=== PATIENT | female | born 1970 | race Caucasian/White ===

== ENCOUNTER 2017-08-31 13:13 | Emergency (ER) | payer MEDICAID ==
[~2017-08-31] VITALS: Ht 162.6 cm; Wt 72.0 kg
[2017-08-31 13:19] VITALS: BP 115/82
[2017-08-31] MEDS ORDERED: PENI500T2 PO (14:17)
[2017-08-31] MEDS ORDERED: IBUP-1984 PO (14:17)
== END 2017-08-31 14:37 | disposition home or self-care (01) ==
LOC: ER 13:14
DX: K04.7 Periapical abscess without sinus (principal)
CPT/HCPCS: 99283

== ENCOUNTER 2018-01-19 08:12 | Emergency (ER) | payer MEDICAID ==
[~2018-01-19] VITALS: Ht 167.6 cm; Wt 66.0 kg
[~2018-01-19 08:12] MED LIST: DOCU-28 PO; MAGN296S50 PO
[2018-01-19 08:15] VITALS: BP 122/74
[2018-01-19] MEDS ORDERED: AMOX500C2 PO (08:34)
[2018-01-19] MEDS ORDERED: IBUP-1984 PO (08:35)
== END 2018-01-19 09:05 | disposition home or self-care (01) ==
LOC: ER 08:13
DX: K04.7 Periapical abscess without sinus (principal); K21.9 Gastro-esophageal reflux disease without esophagitis; F17.200 Nicotine dependence, unspecified, uncomplicated; Z88.1 Allergy status to other antibiotic agents; Z79.899 Other long term (current) drug therapy
CPT/HCPCS: 99283

== ENCOUNTER 2018-02-02 20:35 | Emergency (ER) | payer MEDICAID ==
[~2018-02-02] VITALS: Ht 167.6 cm; Wt 66.6 kg
[~2018-02-02 20:35] MED LIST changes: +IBUP-1984 PO
[2018-02-02 20:46] VITALS: BP 136/70
[2018-02-02] MEDS ORDERED: dexamethasone sod phosphate 10mg/ml inj PO STA (21:30)
== END 2018-02-02 22:11 | disposition home or self-care (01) ==
LOC: ER 20:36
DX: J02.9 Acute pharyngitis, unspecified (principal); K21.9 Gastro-esophageal reflux disease without esophagitis; K59.00 Constipation, unspecified; F17.200 Nicotine dependence, unspecified, uncomplicated; Z88.1 Allergy status to other antibiotic agents
CPT/HCPCS: 99282; J1100

== ENCOUNTER 2018-08-09 06:01 | Emergency (ER) | payer MEDICAID ==
[~2018-08-09] VITALS: Ht 167.6 cm; Wt 64.0 kg
[~2018-08-09 06:01] MED LIST changes: -IBUP-1984 PO
[2018-08-09 06:06] VITALS: BP 121/69
[2018-08-09] MEDS ORDERED: CLIN-96 PO (06:45)
[2018-08-09] MEDS ORDERED: morphine 4 MG/ML inj SYRINge IM ONE (06:45)
== END 2018-08-09 07:27 | disposition home or self-care (01) ==
LOC: ER 06:02
DX: K08.89 Other specified disorders of teeth and supporting structures (principal); E78.00 Pure hypercholesterolemia, unspecified; K21.9 Gastro-esophageal reflux disease without esophagitis; F17.200 Nicotine dependence, unspecified, uncomplicated; Z79.899 Other long term (current) drug therapy; Z88.1 Allergy status to other antibiotic agents
CPT/HCPCS: 96372; 99283; J2270

== ENCOUNTER 2020-02-15 13:19 | Emergency (ER) | payer MEDICAID ==
[~2020-02-15 13:19] MED LIST changes: +CLIN-97 PO; -MAGN296S50 PO; +MAGN296S70 PO
[2020-02-15 13:51] VITALS: BP 94/66
--- NOTE | 2020-02-15 15:27 | NUR ---
PT CALLED TO FAST TRACK X3, NIL. PROVIDER NOTIFIED, NO FURTHER ACTION ORDERED.
== END 2020-02-15 15:28 | disposition left against medical advice (07) ==
LOC: ER 13:19
DX: M54.9 Dorsalgia, unspecified (principal); Z53.21 Procedure and treatment not carried out due to patient leaving prior to being seen by health care provider

== ENCOUNTER 2020-04-21 00:14 | Emergency (ER) | payer MEDICAID ==
[~2020-04-21] VITALS: Ht 170.2 cm; Wt 63.6 kg
--- NOTE | 2020-04-21 00:46 | NUR ---
marketing operations intern, mirella, updated of Pt. EKG ordered for report of near syncopy and sweaty dizzy episodes and hx of palpitations.
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
--- NOTE | 2020-04-21 01:05 | NUR ---
Dr. Garcia updated of Pt and read EKG.
[2020-04-21] MEDS ORDERED: LORazepam 0.5 MG tablet PO PRN (02:10)
[2020-04-21 02:24] VITALS: BP 119/85
[2020-04-21 02:25] LABS: BASOPHILS % (AUTO) 0.6 % (0-1); EOSINOPHILS # (AUTO) 0.2 X10'3 (0-0.9); EOSINOPHILS % (AUTO) 2.8 % (0-6); HEMATOCRIT 45.1 % (35.0-45.0); HEMOGLOBIN 15.2 g/dl (12.0-16.0); LYMPHOCYTES # (AUTO) 1.5 X10'3 (1.1-4.8); LYMPHOCYTES % (AUTO) 24.5 % (21-51); MEAN CORPUSCULAR HEMOGLOBIN 33.6 PG (27.0-31.0); MEAN CORPUSCULAR HGB CONC 33.8 g/dL (33.0-36.5); MEAN CORPUSCULAR VOLUME 99.4 FL (78-98); MEAN PLATELET VOLUME 8.4 FL (7.4-10.4); MONOCYTES # (AUTO) 0.5 X10'3 (0-0.9); MONOCYTES % (AUTO) 7.5 % (2-12); NEUTROPHILS # (AUTO) 3.9 X10'3 (1.8-7.7); NEUTROPHILS % (AUTO) 64.6 % (42-75); PLATELET COUNT 235 X10'3 (140-440); RED BLOOD COUNT 4.53 X10'6 (4.20-5.60); RED CELL DISTRIBUTION WIDTH 14.2 % (11.5-14.5)
[2020-04-21 02:41] LABS: ALBUMIN 4.2 G/DL (3.4-5.0); ANION GAP 12 (8-16); BLOOD UREA NITROGEN 8 MG/DL (7-18); BUN/CREATININE RATIO 11.4 (6.6-38.0); CALCIUM 9.3 MG/DL (8.5-10.1); CHLORIDE 101 MMOL/L (99-107); GLUCOSE 104 MG/DL (70-104); MAGNESIUM 2.3 MG/DL (1.5-2.4); POTASSIUM 3.4 MMOL/L (3.5-5.1); SODIUM 138 MMOL/L (135-145); TOTAL CARBON DIOXIDE 24.9 MMOL/L (24-32); TROPONIN I < 0.04 NG/ML (0.0-0.05); eGFR 89 ML/MIN
--- NOTE | 2020-04-21 02:46 | NUR ---
awaiting lab results. just given ativan 0.5 mg po.
== END 2020-04-21 03:21 | disposition home or self-care (01) ==
LOC: ER 00:14
DX: U07.1 COVID-19 (principal); R53.1 Weakness; R53.83 Other fatigue; R42 Dizziness and giddiness; M79.10 Myalgia, unspecified site; E78.00 Pure hypercholesterolemia, unspecified; K21.9 Gastro-esophageal reflux disease without esophagitis; F17.200 Nicotine dependence, unspecified, uncomplicated; Z86.2 Personal history of diseases of the blood and blood-forming organs and certain disorders involving the immune mechanism; Z98.890 Other specified postprocedural states; Z88.1 Allergy status to other antibiotic agents; Z79.2 Long term (current) use of antibiotics; Z79.899 Other long term (current) drug therapy
CPT/HCPCS: 36415; 80048; 83735; 84484; 85025; 87635; 93005; 99284

== ENCOUNTER 2022-04-13 15:24 | Inpatient (IN) | payer MEDICAID ==
[~2022-04-13] VITALS: Ht 167.6 cm; Wt 59.0 kg
[~2022-04-13 15:24] MED LIST changes: +MAGN296S PO; -MAGN296S70 PO
[2022-04-13] MEDS ORDERED: normal saline 1000ML IV soln IVB ONE ×2 (19:40→22:50)
[2022-04-13] MEDS ORDERED: morphine 4 MG/ML inj SYRINge IV ONE (19:40)
[2022-04-13] MEDS ORDERED: vancomycin/NS 1 GM ADD-VANTAGE 250 ML IV ONE (20:00)
[2022-04-13 20:33] LABS: BASOPHILS % (AUTO) 0.2 % (0-1); EOSINOPHILS % (AUTO) 0.1 % (0-6); HEMATOCRIT 36.9 % (35.0-45.0); HEMOGLOBIN 11.9 g/dl (12.0-16.0); LYMPHOCYTES % (AUTO) 8.1 % (21-51); MEAN CORPUSCULAR HEMOGLOBIN 26.9 PG (27.0-31.0); MEAN CORPUSCULAR HGB CONC 32.3 g/dL (33.0-36.5); MEAN CORPUSCULAR VOLUME 83.2 FL (78-98); MONOCYTES # (AUTO) 0.8 X10'3 (0-0.9); MONOCYTES % (AUTO) 6.7 % (2-12); NEUTROPHILS # (AUTO) 10.5 X10'3 (1.8-7.7); NEUTROPHILS % (AUTO) 84.9 % (42-75); PLATELET COUNT 269 X10'3 (140-440); RED BLOOD COUNT 4.44 X10'6 (4.20-5.60); RED CELL DISTRIBUTION WIDTH 16.5 % (11.5-14.5); WHITE BLOOD COUNT 12.4 X10'3 (4.5-11.0)
[2022-04-13 20:54] LABS: ALANINE AMINOTRANSFERASE 19 U/L (12-78); ALBUMIN 3.3 G/DL (3.4-5.0); ALBUMIN/GLOBULIN RATIO 0.8 (1.1-1.5); ALKALINE PHOSPHATASE 153 IU/L (46-116); ANION GAP 11 (8-16); ASPARTATE AMINO TRANSFERASE 14 U/L (10-37); BILIRUBIN,TOTAL 0.3 MG/DL (0.1-1.0); BLOOD UREA NITROGEN 8 MG/DL (7-18); BUN/CREATININE RATIO 11.6 (6.6-38.0); CHLORIDE 100 MMOL/L (99-107); CREATININE 0.69 MG/DL (0.40-0.90); GLUCOSE 116 MG/DL (70-104); POTASSIUM 3.6 MMOL/L (3.5-5.1); SODIUM 136 MMOL/L (135-145); TOTAL CARBON DIOXIDE 25.5 MMOL/L (24-32); TOTAL PROTEIN 7.5 G/DL (6.4-8.2); eGFR 89 ML/MIN
[2022-04-13] MEDS ORDERED: temazepam 15mg capsule PO PRN (21:00)
[2022-04-13 21:13] LABS: CLARITY,URINE SLIGHTLY CLOUDY (Clear); COLOR,URINE YELLOW (Yellow); GLUCOSE, URINE NEGATIVE (Neg); KETONES,URINE NEGATIVE (Neg); LEUKOCYTE ESTERASE ,URINE SMALL (Neg); NITRITES, URINE POSITIVE (Neg); OCCULT BLOOD,URINE TRACE-INTACT (Neg); PH,URINE 6.5 (4.8-8.0); PROTEIN,URINE NEGATIVE (Neg); URINE HCG NEGATIVE (NEG); UROBILINOGEN,URINE 0.2 E.U/dL (0.2-1.0)
[2022-04-13 21:15] LABS: UA COLLECTION TYPE CLN CATCH MIDSTREAM
[2022-04-13 21:20] LABS: BACTERIA,URINE 3+ /HPF (Neg); RBC,URINE 0-2 /HPF (0-2); SQUAMOUS EPITHELIAL CELL,UR MANY /LPF (FEW)
[2022-04-13 21:41] LABS: URINE AMPHETAMINE SCREEN POSITIVE (Neg); URINE BARBITUATE SCREEN NEGATIVE (Neg); URINE BENZODIAZEPINES SCREEN NEGATIVE (Neg); URINE CANNABINOID SCREEN NEGATIVE (Neg); URINE COCAINE SCREEN NEGATIVE (Neg); URINE METHADONE SCREEN NEGATIVE (Neg); URINE OPIATE SCREEN POSITIVE (Neg); URINE PHENCYCLIDINE SCREEN NEGATIVE (Neg)
[2022-04-13] MEDS ORDERED: sulfamethoxazole/trimethoprim DS (800/160mg) tablet PO ONE (21:45)
[2022-04-13] MEDS ORDERED: acetaminophen 325mg tablet PO PRN ×2 (22:45)
[2022-04-13] MEDS ORDERED: mag hydrox/Alum hydrox/simeth 30ml oral suspension PO PRN (22:45)
[2022-04-13] MEDS ORDERED: ondansetron 4mg rapidly disintigrating tab PO PRN (22:45)
[2022-04-13] MEDS ORDERED: diphenhydrAMINE 50 mg/ml inj IV PRN (22:45)
[2022-04-13] MEDS ORDERED: metoclopramide 5 mg/ml inj IV PRN (22:45)
[2022-04-13] MEDS ORDERED: bisacodyl 10mg suppository rectal RC PRN (22:45)
[2022-04-13] MEDS ORDERED: HYDROcodone/acetaminophen 10/325mg tab PO PRN (22:45)
[2022-04-13] MEDS ORDERED: HYDROcodone/acetaminophen 5mg/325mg tablet PO PRN (22:45)
[2022-04-13] MEDS ORDERED: ondansetron/PF 4mg/2ml inj IV PRN (22:45)
[2022-04-13] MEDS ORDERED: morphine 2 MG/ML inj. syringe IV PRN ×2 (22:45)
[2022-04-13] MEDS ORDERED: HYDROmorphone inj. 0.5 MG/0.5 ML DISP.SYRIN IV PRN (22:45)
[2022-04-13] MEDS ORDERED: diphenhydrAMINE 25mg capsule PO PRN (22:45)
[2022-04-13] MEDS ORDERED: acetaminophen 650mg rectal suppository RC PRN (22:45)
[2022-04-13] MEDS ORDERED: magnesium hydroxide 30ml (MOM) UD suspension PO PRN (22:45)
[2022-04-13 22:50] LABS: C-REACTIVE PROTEIN 4.86 MG/DL (0.0-0.5)
[2022-04-13] MEDS ORDERED: TETanus/Pertussis (Acell)/Diphther VAC/PF (Tdap-Adult) 0.5ml syringe IMVAC ONE (22:55)
[2022-04-13 23:10] LABS: APTT 30 SECONDS (22-32)
[2022-04-13 23:14] LABS: PHOSPHORUS 3.1 MG/DL (2.3-4.5)
[2022-04-14] MEDS: clindamycin 300mg/D5W 50mL 50 ML IV SCH ×2 (00:19→08:50)
[2022-04-14] MEDS: dextrose 5%-1/2 normal saline 1,000 ML IV SCH ×2 (00:50→08:45)
[2022-04-14 03:42] LABS: BASOPHILS % (AUTO) 0.1 % (0-1); EOSINOPHILS % (AUTO) 0.3 % (0-6); HEMATOCRIT 35.3 % (35.0-45.0); HEMOGLOBIN 11.2 g/dl (12.0-16.0); LYMPHOCYTES # (AUTO) 1.2 X10'3 (1.1-4.8); LYMPHOCYTES % (AUTO) 9.9 % (21-51); MEAN CORPUSCULAR HEMOGLOBIN 26.3 PG (27.0-31.0); MEAN CORPUSCULAR HGB CONC 31.7 g/dL (33.0-36.5); MEAN CORPUSCULAR VOLUME 83.2 FL (78-98); MEAN PLATELET VOLUME 8.1 FL (7.4-10.4); MONOCYTES # (AUTO) 1.1 X10'3 (0-0.9); MONOCYTES % (AUTO) 8.7 % (2-12); NEUTROPHILS # (AUTO) 9.8 X10'3 (1.8-7.7); PLATELET COUNT 257 X10'3 (140-440); RED BLOOD COUNT 4.24 X10'6 (4.20-5.60); WHITE BLOOD COUNT 12.1 X10'3 (4.5-11.0)
[2022-04-14 04:13] LABS: ALANINE AMINOTRANSFERASE 17 U/L (12-78); ALBUMIN 2.8 G/DL (3.4-5.0); ALBUMIN/GLOBULIN RATIO 0.7 (1.1-1.5); ALKALINE PHOSPHATASE 141 IU/L (46-116); ANION GAP 10 (8-16); ASPARTATE AMINO TRANSFERASE 17 U/L (10-37); BILIRUBIN,TOTAL 0.3 MG/DL (0.1-1.0); BLOOD UREA NITROGEN 10 MG/DL (7-18); BUN/CREATININE RATIO 12.2 (6.6-38.0); CALCIUM 8.4 MG/DL (8.5-10.1); CHLORIDE 105 MMOL/L (99-107); CREATININE 0.82 MG/DL (0.40-0.90); GLUCOSE 127 MG/DL (70-104); POTASSIUM 3.7 MMOL/L (3.5-5.1); SODIUM 139 MMOL/L (135-145); TOTAL CARBON DIOXIDE 23.8 MMOL/L (24-32); TOTAL PROTEIN 6.7 G/DL (6.4-8.2); eGFR 73 ML/MIN
--- NOTE | 2022-04-14 07:30 | NUR ---
Pt gets up on her own and unhooks her tubes and lines in order go to the bathroom and walk around. Her belongings are spread all around the room. Given bags to contain belonging.
[2022-04-14] MEDS: docusate sod 100mg capsule PO SCH ×2 (08:00→20:00)
--- NOTE | 2022-04-14 08:00 | NUR ---
Pt is awake and alert. C/O pain in B hands. Boyfriend at bedside.
--- NOTE | 2022-04-14 08:30 | NUR ---
Pt's visitor is loud and disruptive. Reminded that if he is to stay, he must be respectful and speak in a low volume.
--- NOTE | 2022-04-14 08:45 | NUR ---
Pt's visitor went to the bathroom and upon return he layed down on the floor and closed his eyes. When told that we would call security to have him removed, he stood up and went to Ms. Diaz's room.
[2022-04-14] MEDS: heparin, porcine 5000 units/ml vial SQ SCH ×2 (08:51→21:06)
[2022-04-14] MEDS: nicotine 21mg patch - 24 hr TD SCH (08:51)
[2022-04-14] MEDS: pantoprazole 40mg Tablet.DR PO SCH (08:55)
--- NOTE | 2022-04-14 09:30 | NUR ---
Pt heard crying. Went in the room to find two male visitors. Reminded them that the patient needs to rest and to keep their voices down.
--- NOTE | 2022-04-14 10:30 | NUR ---
Pt's visitors asked to leave the department due to being disruptive. Escorted out of the department by security.
--- NOTE | 2022-04-14 11:30 | NUR ---
Hands cleaned with scrub brush/chlorhexadine. Non-stick dressing applied to open blisters(dorsum) on B 4th fingers. B hands are swollen and have dry scabs.
--- NOTE | 2022-04-14 12:05 | NUR ---
Pt is sleeping.
[2022-04-14] MEDS: vancomycin/NS 1 GM ADD-VANTAGE 250 ML IV SCH (16:10)
--- NOTE | 2022-04-14 16:13 | NUR ---
Pt is sleeping.
[2022-04-14 19:00] VITALS: BP 143/72
[2022-04-14 22:00] VITALS: BP 146/77
[2022-04-15] MEDS: vancomycin/NS 1 GM ADD-VANTAGE 250 ML IV SCH (02:00)
[2022-04-15 06:16] LABS: BASOPHILS % (AUTO) 0.5 % (0-1); EOSINOPHILS # (AUTO) 0.1 X10'3 (0-0.9); EOSINOPHILS % (AUTO) 1.5 % (0-6); HEMATOCRIT 33.8 % (35.0-45.0); HEMOGLOBIN 10.9 g/dl (12.0-16.0); LYMPHOCYTES # (AUTO) 0.9 X10'3 (1.1-4.8); LYMPHOCYTES % (AUTO) 22.5 % (21-51); MEAN CORPUSCULAR HEMOGLOBIN 27.3 PG (27.0-31.0); MEAN CORPUSCULAR HGB CONC 32.3 g/dL (33.0-36.5); MEAN CORPUSCULAR VOLUME 84.5 FL (78-98); MEAN PLATELET VOLUME 7.9 FL (7.4-10.4); MONOCYTES # (AUTO) 0.4 X10'3 (0-0.9); MONOCYTES % (AUTO) 9.6 % (2-12); NEUTROPHILS # (AUTO) 2.5 X10'3 (1.8-7.7); NEUTROPHILS % (AUTO) 65.9 % (42-75); PLATELET COUNT 212 X10'3 (140-440); RED BLOOD COUNT 3.99 X10'6 (4.20-5.60); RED CELL DISTRIBUTION WIDTH 16.8 % (11.5-14.5); WHITE BLOOD COUNT 3.8 X10'3 (4.5-11.0)
--- NOTE | 2022-04-15 06:47 | NUR ---
Problems reprioritized. Patient report given, questions answered & plan of care reviewed with WILLIAM. Addendum: 04/15/22 at 0647 by Agustín Antunez RN Amended: Links added.
[2022-04-15 06:57] LABS: ALANINE AMINOTRANSFERASE 22 U/L (12-78); ALBUMIN 2.4 G/DL (3.4-5.0); ALBUMIN/GLOBULIN RATIO 0.6 (1.1-1.5); ALKALINE PHOSPHATASE 149 IU/L (46-116); ANION GAP 7 (8-16); ASPARTATE AMINO TRANSFERASE 26 U/L (10-37); BILIRUBIN,TOTAL 0.2 MG/DL (0.1-1.0); BLOOD UREA NITROGEN 9 MG/DL (7-18); BUN/CREATININE RATIO 11.5 (6.6-38.0); CALCIUM 8.2 MG/DL (8.5-10.1); CHLORIDE 105 MMOL/L (99-107); CREATININE 0.78 MG/DL (0.40-0.90); GLUCOSE 151 MG/DL (70-104); POTASSIUM 3.1 MMOL/L (3.5-5.1); SODIUM 137 MMOL/L (135-145); TOTAL CARBON DIOXIDE 25.3 MMOL/L (24-32); TOTAL PROTEIN 6.1 G/DL (6.4-8.2); eGFR 78 ML/MIN
[2022-04-15 07:00] VITALS: BP 139/78
[2022-04-15] MEDS: pantoprazole 40mg Tablet.DR PO SCH (07:35)
[2022-04-15] MEDS: docusate sod 100mg capsule PO SCH (07:36)
[2022-04-15] MEDS: heparin, porcine 5000 units/ml vial SQ SCH (07:37)
[2022-04-15] MEDS: nicotine 21mg patch - 24 hr TD SCH (07:37)
--- NOTE | 2022-04-15 08:54 | NUR ---
PAGER ID: [phone] MESSAGE: Jennifer Surg [id number] Re: [id number] Diaz patient would like to be discharged. Does not want to leave AMA but is thinking about it.
[2022-04-15] MEDS ORDERED: potassium Cl 20 mEq SR tablet PO STA (09:53)
[2022-04-15] MEDS ORDERED: LINE600T11 PO (10:08)
--- NOTE | 2022-04-15 11:16 | NUR ---
PATIENTS FOUND DOWN ON FLOOR WHILST VISITING PATIENT. RAPID RESPONSE CALLED AND PATIENTS , TRANSFERRED TO ER. patient appeared not concerned with regards this as she states that this has happened many times as is severe alcoholic. patient meanwhile seen by Dr Chavez is for discharge. All DC instructions given to patient. patients returned to bedside after leaving ER, security guards walked back down to lobby. Cab called for patient. patient escorted to lobby waiting for caB IN STABLE CONDITION.
[2022-04-16] MEDS ORDERED: VANCOMYCIN LEVEL IV ONE (03:30)
== END 2022-04-15 10:45 | disposition home or self-care (01) | DRG 383 ==
LOC: ER 15:25 → ED HOLD 22:49 → SUR 3N 04-14 19:24
PROVIDERS: ADMIT Family Medicine; ATTEND Internal Medicine
PROC: 3E0234Z Introduction of Serum, Toxoid and Vaccine into Muscle, Percutaneous Approach (ICD-10-PCS; principal; 2022-04-13)
DX: L03.113 Cellulitis of right upper limb (principal); D64.9 Anemia, unspecified; E78.00 Pure hypercholesterolemia, unspecified; E87.6 Hypokalemia; S61.421A Laceration with foreign body of right hand, initial encounter; L03.114 Cellulitis of left upper limb; F15.129 Other stimulant abuse with intoxication, unspecified; S61.422A Laceration with foreign body of left hand, initial encounter; X58.XXXA Exposure to other specified factors, initial encounter; F41.9 Anxiety disorder, unspecified; I10 Essential (primary) hypertension; K21.9 Gastro-esophageal reflux disease without esophagitis; N30.00 Acute cystitis without hematuria; Z59.00 Homelessness unspecified; Z72.0 Tobacco use; Z98.891 History of uterine scar from previous surgery; Z23 Encounter for immunization; Z88.8 Allergy status to other drugs, medicaments and biological substances; Z79.899 Other long term (current) drug therapy; Y93.89 Activity, other specified; Y92.89 Other specified places as the place of occurrence of the external cause; Y99.8 Other external cause status; Z71.6 Tobacco abuse counseling; Z71.51 Drug abuse counseling and surveillance of drug abuser
CPT/HCPCS: 36415; 71045; 73120; 73130; 80053; 80305; 81001; 81025; 83605; 83735; 83880; 84100; 84145; 85025; 85610; 85651; 85730; 86140; 87040; 87081; 90715; 93005; 96374; 96375; 99285; A6223; A6258; G0378; J1644; J2270; J3370; J3490; J7030; J7042

== ENCOUNTER 2023-05-06 12:38 | Emergency (ER) | payer MEDICAID ==
[~2023-05-06] VITALS: Ht 167.6 cm; Wt 77.2 kg
[~2023-05-06 12:38] MED LIST changes: -CLIN-97 PO; -MAGN296S PO; +MAGN296S89 PO
[2023-05-06 13:26] VITALS: BP 189/81; PULSE 107; RESP 18; TEMP 97.8; O2SAT 98
== END 2023-05-06 14:49 | disposition home or self-care (01) ==
LOC: ER 12:39
DX: L03.114 Cellulitis of left upper limb (principal); E78.00 Pure hypercholesterolemia, unspecified; Z72.89 Other problems related to lifestyle; Z86.2 Personal history of diseases of the blood and blood-forming organs and certain disorders involving the immune mechanism; Z88.1 Allergy status to other antibiotic agents; Z79.899 Other long term (current) drug therapy
CPT/HCPCS: 99283

== ENCOUNTER 2024-12-09 23:58 | Emergency (ER) | payer MEDICAID ==
[~2024-12-09] VITALS: Ht 170.2 cm; Wt 52.6 kg
[2024-12-10] VITALS: BP 110/54; PULSE 100; RESP 15; O2SAT 100
--- NOTE | 2024-12-10 01:06 | Physician Documentation ---
History of Present Illness ~ Chief Complaint: Wound Stated Complaint: ABCESS Time Seen by MD: 00:38 Primary Medical Doctor: KARENA HUNTER Source: patient Mode of Arrival: POV Exam Limitations: no limitations HPI Chief Complaint: Wound to left buttock Caveat: None Independent Historians: None History of Present Illness: Patient is a 54-year-old woman who comes in complaining of a wound over her left anterior medial lower buttock. Patient noticed it 3-4 days ago. She has been placing warm compresses on it without any relief. Pain is constant and currently 4/10. Pain is worse with touch or sitting on it. Patient denies any fever. Patient denies any other associated symptoms. Review of systems: All systems were reviewed and are negative except for what is indicated in the history of present illness. Past Medical History: None per patient Past Surgical History: Noncontributory Social History: Tobacco use, denies drug use or alcohol use Medications: Reviewed as documented Nursing Notes Allergies: Reviewed as documented in Nursing Notes Medication Reconciliation Allergies: Coded Allergies: cephalexin (Unverified Allergy, Intermediate, 12/10/24) Scheduled Docusate Sodium (Colace), 1 CAP PO Q12H Magnesium Citrate (Magnesium Citrate), 300 ML PO DRINK X 1 Sulfamethoxazole/Trimethoprim (Bactrim Ds Tablet), 1 TAB PO Q12H Past Medical History Past Medical History: High Cholesterol, Constipation, GERD, Anemia Past Surgical History: Alcohol Use: Occasionally Drug Use: none Lives with: Family Lives In: Home Review of Systems All Other Systems at this time: Reviewed and Negative ROS Patient denies any other acute symptoms other than above. All other systems are negative Physical Exam Vital Signs: RN Vital Signs have been reviewed: Yes, Temperature: 97.6, Source: Temporal, Heart Rate: 100, Respiratory Rate: 15, BP: 110/54, Pulse Oximetry: 100, Weight: 52.600 Pulse Oximetry Reflects: adequate oxygenation Physical Exam General Appearance: No distress Neck: supple, normal ROM, trachea midline Pulmonary: No respiratory distress, CTA, BS equal Cardiac: RRR, no murmur, rub or gallop, GI: nondistended, soft, nontender, normal bowel sounds, no guarding, no rebound Extremities: normal ROM, no swelling, non-tender Skin: intact, dry, warm, no rashes, PATIENT HAS A NICKEL SIZE AREA OVER THE P ERINEUM BELOW THE LEFT BUTTOCK. PATIENT APPEARS TO HAVE HAD A SMALL ABSCESS THAT HAS ALREADY DRAINED. THERE IS NO FLUCTUANCE. THERE WAS NO SURROUNDING ERYTHEMA. Neuro: AAOx3, speech is clear Psych: normal affect, good eye contact, no apparent hallucination, normal speech Progress Results/Orders Results/Orders Completed Orders - DEWEY BAUTISTA MD Sulfamethox/Trimetho. Ds Tab (Septra Ds (12/10/24 02:35) Vital Signs 12/10/24 12/10/24 00:00 02:38 Temp 97.6 97.6 Pulse 100 Resp 15 B/P (MAP) 110/54 Pulse Ox 100 Medical Decision Making Findings Differential diagnosis includes but is not limited to: PHLEGMON, ABSCESS, CELLULITIS, EARLY ABSCESS Emergency department course/medical decision-making: Patient appears to have had a small abscess that has already drained. There was no further incision or drainage require. The there is no surrounding cellulitis. Patient will be placed on Bactrim. Patient is given her 1st dose here. Patient is stable for discharge. Departure Time of Disposition: 02:33 Disposition: 01 HOME / SELF CARE / HOMELESS Impression: Primary Impression: Abscess Condition: Stable Discharge Instructions: Skin Abscess Additional Instructions: TAKE THE ANTIBIOTICS PRESCRIBED FOR 10 DAYS. RETURN TO THE ER IF SYMPTOMS WORSEN. CONTINUE TO APPLY WARM COMPRESSES. TAKE MOTRIN FOR PAIN. Prescriptions Sulfamethoxazole/Trimethoprim (Bactrim Ds Tablet) 800 Mg-160 Mg Tablet 1 TAB PO Q12H for 10 Days, #20 TAB Prov: DEWEY BAUTISTA MD 12/10/24 Education Educated: Patient Educated regarding: diagnosis, treatment, need for follow up Signature Scribe Signature: NO SCRIBE Attestation: NO SCRIBE DEWEY BAUTISTA MD Dec 10, 2024 01:06
[2024-12-10] MEDS ORDERED: SULF1TAB49 PO (02:34)
[2024-12-10 02:38] VITALS: TEMP 97.6
[2024-12-10] MEDS: sulfamethoxazole/trimethoprim DS (800/160mg) tablet PO ONE (02:49)
== END 2024-12-10 02:51 | disposition home or self-care (01) ==
LOC: ER 23:59
DX: L02.31 Cutaneous abscess of buttock (principal); E78.00 Pure hypercholesterolemia, unspecified; K21.9 Gastro-esophageal reflux disease without esophagitis; D64.9 Anemia, unspecified; Z72.89 Other problems related to lifestyle; Z88.1 Allergy status to other antibiotic agents; Z79.899 Other long term (current) drug therapy
CPT/HCPCS: 99283